=== PATIENT | female | born 1990 | race Caucasian/White ===

== ENCOUNTER 2016-05-12 21:26 | Emergency (ER) | payer MEDICAID ==
[~2016-05-12] VITALS: Ht 165.1 cm; Wt 101.2 kg
[2016-05-12 21:37] VITALS: BP 150/72
--- NOTE | 2016-05-12 21:52 | NUR ---
TO ER BED 4
[2016-05-12 23:35] VITALS: BP 141/75
== END 2016-05-12 23:35 | disposition home or self-care (01) ==
LOC: MED 21:26
DX: T83.83XA Hemorrhage due to genitourinary prosthetic devices, implants and grafts, initial encounter (principal); R03.0 Elevated blood-pressure reading, without diagnosis of hypertension